=== PATIENT | female | born 1975 | race American Indian/Alaskan Native ===

== ENCOUNTER 2018-01-13 21:02 | Emergency (ER) | payer SELFPAY ==
[2018-01-13 22:24] LABS: Basophils % (Auto) 0.4 % (0.0-1.8); Eosinophils # (Auto) 0.6 K/mm3 (0.0-0.4); Hematocrit 34.8 % (30.3-42.9); Lymphocytes # (Auto) 1.9 K/mm3 (1.2-5.4); Lymphocytes % (Auto) 21.7 % (13.4-35.0); Mean Corpuscular HGB Conc 35 % (30-34); Mean Corpuscular Hemoglobin 31 pg (28-32); Mean Corpuscular Volume 88 fl (79-97); Monocytes # (Auto) 1.2 K/mm3 (0.0-0.8); Monocytes % (Auto) 13.9 % (0.0-7.3); Platelet Count 352 K/mm3 (140-440); Red Blood Count 3.94 M/mm3 (3.65-5.03); Red Cell Distribution Width 13.8 % (13.2-15.2)
[2018-01-13 23:06] LABS: BUN/Creatinine Ratio 20; Blood Urea Nitrogen 14 mg/dL (7-17); Calcium 8.8 mg/dL (8.4-10.2); Hemolysis Index 5
[2018-01-14 00:51] LABS: Bilirubin,Urine NEG (Negative); Blood,Urine NEG (Negative); Color,Urine Yellow (Yellow); Protein,Urine <15 mg/dL mg/dL (Negative); Urobilinogen,Urine < 2.0 mg/dL (<2.0)
[2018-01-14 00:55] LABS: Amphetamine Screen,Urine PRESUMPTIVE NEGATIVE; Cannabinoid Screen,Urine PRESUMPTIVE NEGATIVE; Cocaine Screen,Urine PRESUMPTIVE NEGATIVE; Methadone Screen,Urine PRESUMPTIVE NEGATIVE; Opiate Screen,Urine PRESUMPTIVE NEGATIVE
--- NOTE | 2018-01-14 01:10 | Emergency Department Report ---
ED Medical Clearance HPI - General Chief complaint: Medical Clearance Stated complaint: MEDICAL CLEAR. Time Seen by Provider: 01/13/18 22:31 Source: patient Mode of arrival: Ambulatory - History of Present Illness Initial comments: Patient is a 42-year-old female who is presenting for medical clearance to go to [facility] which is a long-term mental health lodging situation. Patient is here for medical clearance so that she can be admitted. Patient has no complaints other than just some mild cough that has been increasing for the last week. Patient states there is a clearish sputum present. Patient denies any fevers chills drug use alcohol use abdominal pain nausea vomiting or fever at this time. Home medications: Previous Rx's Medication Instructions Recorded Last Taken Type ALBUTEROL Inhaler [ProAir HFA 2 puff IH QID PRN #1 inhalation 01/14/18 Unknown Rx Inhaler] Sulfamethoxazole/Trimethoprim 1 each PO BID #14 tablet 01/14/18 Unknown Rx [Bactrim DS TAB] Allergies/Adverse reactions: Allergies Allergy/AdvReac Type Severity Reaction Status Date / Time No Known Allergies Allergy Unverified 01/13/18 21:57 ED Review of Systems ROS: Stated complaint: MEDICAL CLEAR. Other details as noted in HPI Comment: All other systems reviewed and negative ED Past Medical Hx - Past Medical History Previous Medical History?: Yes Hx Hypertension: Yes Hx Psychiatric Treatment: Yes (depression with psychosis, bipolar) Hx Asthma: Yes Hx COPD: Yes Additional medical history: low Blood sugar - Surgical History Past Surgical History?: Yes Additional Surgical History: partial Hyster, hernia, lumpectomy rt breast - Social History Smoking Status: Current Every Day Smoker Substance Use Type: Alcohol - Medications Home Medications: Home Medications Medication Instructions Recorded Confirmed Last Taken Type ALBUTEROL Inhaler [ProAir HFA 2 puff IH QID PRN #1 inhalation 01/14/18 Unknown Rx Inhaler] Sulfamethoxazole/Trimethoprim 1 each PO BID #14 tablet 01/14/18 Unknown Rx [Bactrim DS TAB] ED Physical Exam - General Limitations: No Limitations General appearance: alert, in no apparent distress - Head Head exam: Present: atraumatic, normocephalic - Eye Eye exam: Present: normal appearance - ENT ENT exam: Present: mucous membranes moist - Neck Neck exam: Present: normal inspection - Respiratory Respiratory exam: Present: normal lung sounds bilaterally. Absent: respiratory distress - Cardiovascular Cardiovascular Exam: Present: regular rate, normal rhythm. Absent: systolic murmur, diastolic murmur, rubs, gallop - GI/Abdominal GI/Abdominal exam: Present: soft, normal bowel sounds - Extremities Exam Extremities exam: Present: normal inspection - Back Exam Back exam: Present: normal inspection - Neurological Exam Neurological exam: Present: alert, oriented X3 - Psychiatric Psychiatric exam: Present: normal affect, normal mood - Skin Skin exam: Present: warm, dry, intact, normal color. Absent: rash ED Medical Decision Making - Lab Data Result diagrams: 01/13/18 22:14 01/13/18 22:14 Lab Results 01/13/18 01/13/18 01/13/18 Range/Units 22:14 22:14 22:14 WBC (4.5-11.0) K/mm3 RBC (3.65-5.03) M/mm3 Hgb (10.1-14.3) gm/dl Hct (30.3-42.9) % MCV (79-97) fl MCH (28-32) pg MCHC (30-34) % RDW (13.2-15.2) % Plt Count (140-440) K/mm3 Lymph % (Auto) (13.4-35.0) % Elliott % (Auto) (0.0-7.3) % Eos % (Auto) (0.0-4.3) % Baso % (Auto) (0.0-1.8) % Lymph # (1.2-5.4) K/mm3 Elliott # (0.0-0.8) K/mm3 Eos # (0.0-0.4) K/mm3 Baso # (0.0-0.1) K/mm3 Seg Neutrophils % (40.0-70.0) % Seg Neutrophils # (1.8-7.7) K/mm3 Sodium 136 L (137-145) mmol/L Potassium 3.9 (3.6-5.0) mmol/L Chloride 92.6 L (98-107) mmol/L Carbon Dioxide 31 H (22-30) mmol/L Anion Gap 16 mmol/L BUN 14 (7-17) mg/dL Creatinine 0.7 (0.7-1.2) mg/dL Estimated GFR > 60 ml/min BUN/Creatinine Ratio 20 % Glucose 76 (65-100) mg/dL Calcium 8.8 (8.4-10.2) mg/dL Urine Color (Yellow) Urine Turbidity (Clear) Urine pH (5.0-7.0) Ur Specific [place] (1.003-1.030) Urine Protein (Negative) mg/dL Urine Glucose (UA) (Negative) mg/dL Urine Ketones (Negative) mg/dL Urine Blood (Negative) Urine Nitrite (Negative) Urine Bilirubin (Negative) Urine Urobilinogen (<2.0) mg/dL Ur Leukocyte Esterase (Negative) Urine WBC (Auto) (0.0-6.0) /HPF Urine RBC (Auto) (0.0-6.0) /HPF U Epithel Cells (Auto) (0-13.0) /HPF Salicylates < 0.3 L (2.8-20.0) mg/dL Urine Opiates Screen Urine Methadone Screen Acetaminophen < 5.0 L (10.0-30.0) ug/mL Ur Barbiturates Screen Ur Phencyclidine Scrn Ur Amphetamines Screen Urine Cocaine Screen U Marijuana (THC) Screen Plasma/Serum Alcohol (0-0.07) % 01/13/18 01/13/18 01/13/18 Range/Units 22:14 22:14 23:19 WBC 8.8 (4.5-11.0) K/mm3 RBC 3.94 (3.65-5.03) M/mm3 Hgb 12.0 (10.1-14.3) gm/dl Hct 34.8 (30.3-42.9) % MCV 88 (79-97) fl MCH 31 (28-32) pg MCHC 35 H (30-34) % RDW 13.8 (13.2-15.2) % Plt Count 352 (140-440) K/mm3 Lymph % (Auto) 21.7 (13.4-35.0) % Elliott % (Auto) 13.9 H (0.0-7.3) % Eos % (Auto) 7.0 H (0.0-4.3) % Baso % (Auto) 0.4 (0.0-1.8) % Lymph # 1.9 (1.2-5.4) K/mm3 Elliott # 1.2 H (0.0-0.8) K/mm3 Eos # 0.6 H (0.0-0.4) K/mm3 Baso # 0.0 (0.0-0.1) K/mm3 Seg Neutrophils % 57.0 (40.0-70.0) % Seg Neutrophils # 5.0 (1.8-7.7) K/mm3 Sodium (137-145) mmol/L Potassium (3.6-5.0) mmol/L Chloride (98-107) mmol/L Carbon Dioxide (22-30) mmol/L Anion Gap mmol/L BUN (7-17) mg/dL Creatinine (0.7-1.2) mg/dL Estimated GFR ml/min BUN/Creatinine Ratio % Glucose (65-100) mg/dL Calcium (8.4-10.2) mg/dL Urine Color Yellow (Yellow) Urine Turbidity Clear (Clear) Urine pH 5.0 (5.0-7.0) Ur Specific [place] 1.008 (1.003-1.030) Urine Protein <15 mg/dl (Negative) mg/dL Urine Glucose (UA) Neg (Negative) mg/dL Urine Ketones Neg (Negative) mg/dL Urine Blood Neg (Negative) Urine Nitrite Neg (Negative) Urine Bilirubin Neg (Negative) Urine Urobilinogen < 2.0 (<2.0) mg/dL Ur Leukocyte Esterase Lg (Negative) Urine WBC (Auto) 7.0 H (0.0-6.0) /HPF Urine RBC (Auto) 3.0 (0.0-6.0) /HPF U Epithel Cells (Auto) < 1.0 (0-13.0) /HPF Salicylates (2.8-20.0) mg/dL Urine Opiates Screen Urine Methadone Screen Acetaminophen (10.0-30.0) ug/mL Ur Barbiturates Screen Ur Phencyclidine Scrn Ur Amphetamines Screen Urine Cocaine Screen U Marijuana (THC) Screen Plasma/Serum Alcohol < 0.01 (0-0.07) % 01/13/18 Range/Units 23:19 WBC (4.5-11.0) K/mm3 RBC (3.65-5.03) M/mm3 Hgb (10.1-14.3) gm/dl Hct (30.3-42.9) % MCV (79-97) fl MCH (28-32) pg MCHC (30-34) % RDW (13.2-15.2) % Plt Count (140-440) K/mm3 Lymph % (Auto) (13.4-35.0) % Elliott % (Auto) (0.0-7.3) % Eos % (Auto) (0.0-4.3) % Baso % (Auto) (0.0-1.8) % Lymph # (1.2-5.4) K/mm3 Elliott # (0.0-0.8) K/mm3 Eos # (0.0-0.4) K/mm3 Baso # (0.0-0.1) K/mm3 Seg Neutrophils % (40.0-70.0) % Seg Neutrophils # (1.8-7.7) K/mm3 Sodium (137-145) mmol/L Potassium (3.6-5.0) mmol/L Chloride (98-107) mmol/L Carbon Dioxide (22-30) mmol/L Anion Gap mmol/L BUN (7-17) mg/dL Creatinine (0.7-1.2) mg/dL Estimated GFR ml/min BUN/Creatinine Ratio % Glucose (65-100) mg/dL Calcium (8.4-10.2) mg/dL Urine Color (Yellow) Urine Turbidity (Clear) Urine pH (5.0-7.0) Ur Specific [place] (1.003-1.030) Urine Protein (Negative) mg/dL Urine Glucose (UA) (Negative) mg/dL Urine Ketones (Negative) mg/dL Urine Blood (Negative) Urine Nitrite (Negative) Urine Bilirubin (Negative) Urine Urobilinogen (<2.0) mg/dL Ur Leukocyte Esterase (Negative) Urine WBC (Auto) (0.0-6.0) /HPF Urine RBC (Auto) (0.0-6.0) /HPF U Epithel Cells (Auto) (0-13.0) /HPF Salicylates (2.8-20.0) mg/dL Urine Opiates Screen Presumptive negative Urine Methadone Screen Presumptive negative Acetaminophen (10.0-30.0) ug/mL Ur Barbiturates Screen Presumptive negative Ur Phencyclidine Scrn Presumptive negative Ur Amphetamines Screen Presumptive negative Urine Cocaine Screen Presumptive negative U Marijuana (THC) Screen Presumptive negative Plasma/Serum Alcohol (0-0.07) % - Radiology Data Radiology results: image reviewed (chest x-ray shows no acute process) - Medical Decision Making Patient is medically cleared at this time to [facility]. Patient will be started on Bactrim for her urinary tract infection and slight upper respiratory infection as well. ED Disposition Clinical Impression: Medical clearance for psychiatric admission Acute bronchitis Qualifiers: Bronchitis organism: unspecified organism Qualified Code(s): J20.9 - Acute bronchitis, unspecified UTI (urinary tract infection) Qualifiers: Urinary tract infection type: site unspecified Hematuria presence: without hematuria Qualified Code(s): N39.0 - Urinary tract infection, site not specified Disposition: - TO HOME OR SELFCARE Is pt being admited?: No Does the pt Need Aspirin: No Condition: Stable Instructions: Acute Bronchitis (ED), Urinary Tract Infection in Women (ED) Prescriptions: ALBUTEROL Inhaler [ProAir HFA Inhaler] 2 puff IH QID PRN #1 inhalation PRN Reason: Shortness Of Breath Sulfamethoxazole/Trimethoprim [Bactrim DS TAB] 1 each PO BID #14 tablet Referrals: RENEE SHEETS MD [Primary Care Provider] - 3-5 Days
[2018-01-14 01:22] LABS: Benzodiazepines Screen,Urine PRESUMPTIVE POSITIVE
--- NOTE | 2018-01-14 01:50 | XRay Report ---
FINAL REPORT PROCEDURE: XR CHEST ROUTINE 2V TECHNIQUE: PA and lateral chest radiographs were obtained. CPT 35221 HISTORY: Cough. COMPARISON: No prior studies are available for comparison. FINDINGS: Heart: On lateral view subtle C-shaped opacity seen anteriorly about the apex of the heart. Mediastinum/Vessels: Mild aortic tortuosity. Lungs/Pleural space: Moderate hyperinflation. Right perihilar linear opacity with mild distortion and possible mild bronchiectasis. Subtle peribronchial thickening. Bony thorax: Moderate dextroscoliosis. Other: IMPRESSION: On lateral view subtle C-shaped opacity seen anteriorly about the apex of the heart, cannot exclude subtle calcification, possibly pericardial or myocardial. Consider CT scan for further characterization if there is continued clinical concern. Mild aortic tortuosity. Hyperinflation suggests obstructive physiology. Right perihilar linear opacity with mild distortion and mild bronchiectasis. Subtle peribronchial thickening, consider mild bronchitis. This can also be re-evaluated on CT scan.
== END 2018-01-14 01:59 | disposition home or self-care (01) ==
LOC: ED 21:02
DX: Z04.6 Encounter for general psychiatric examination, requested by authority (principal); J20.9 Acute bronchitis, unspecified; J44.0 Chronic obstructive pulmonary disease with (acute) lower respiratory infection; N39.0 Urinary tract infection, site not specified; I10 Essential (primary) hypertension; F31.9 Bipolar disorder, unspecified; F17.200 Nicotine dependence, unspecified, uncomplicated; Z79.899 Other long term (current) drug therapy
CPT/HCPCS: 36415; 71046; 80048; 80307; 81001; 85025; 99284; G0480; 80320

== ENCOUNTER 2018-01-16 00:25 | Emergency (ER) | payer MEDICARE ==
[2018-01-16 02:09] LABS: Hematocrit 32.3 % (30.3-42.9); Hemoglobin 11.2 gm/dl (10.1-14.3); Mean Corpuscular HGB Conc 35 % (30-34); Mean Corpuscular Hemoglobin 31 pg (28-32); Mean Corpuscular Volume 88 fl (79-97); Platelet Count 292 K/mm3 (140-440); Red Blood Count 3.68 M/mm3 (3.65-5.03); Red Cell Distribution Width 13.5 % (13.2-15.2)
[2018-01-16 02:29] LABS: BUN/Creatinine Ratio 31; Blood Urea Nitrogen 25 mg/dL (7-17); Calcium 8.7 mg/dL (8.4-10.2); Hemolysis Index 1
[2018-01-16 02:51] LABS: Basophils % (Manual) 0 % (0.0-1.8); RBC Morphology Normal; Total Cells Counted 100
[2018-01-16 02:52] LABS: Platelet Estimate Consistent w Auto
[2018-01-16 03:06] LABS: Bacteria,Urine 1+ /HPF (Negative); Bilirubin,Urine NEG (Negative); Blood,Urine NEG (Negative); Color,Urine Yellow (Yellow); Protein,Urine <15 mg/dL mg/dL (Negative); Urobilinogen,Urine < 2.0 mg/dL (<2.0)
[2018-01-16 03:16] LABS: Amphetamine Screen,Urine PRESUMPTIVE NEGATIVE; Cannabinoid Screen,Urine PRESUMPTIVE NEGATIVE; Cocaine Screen,Urine PRESUMPTIVE NEGATIVE; Methadone Screen,Urine PRESUMPTIVE NEGATIVE; Opiate Screen,Urine PRESUMPTIVE NEGATIVE
[2018-01-16 03:30] LABS: Benzodiazepines Screen,Urine PRESUMPTIVE POSITIVE
[2018-01-16] MEDS ORDERED: NACL 0.9% 1000 ML 1,000 ML IV ONE (04:54)
--- NOTE | 2018-01-16 04:58 | Emergency Department Report ---
History of Present Illness - General Chief Complaint: Overdose Stated Complaint: MEDICAL CLEARANCE Time Seen by Provider: 01/16/18 02:52 Source: patient Mode of arrival: Ambulatory Limitations: No Limitations - History of Present Illness Initial Comments: Patient was sent from [facility] because she's been very drowsy and was sent here for medical clearance. Patient had 2 mg of Xanax on the day of presentation. She was previously sent here for medication side effects due to benzodiazepines a few weeks ago. Patient herself is very drowsy and very sleepy and not able to stay awake long enough to complete a sentence. MD Complaint: accidental overdose -: Gradual Context: Accidental Overdose: other (benzodiazepine) - Related Data Previous Rx's Medication Instructions Recorded Last Taken Type ALBUTEROL Inhaler [ProAir HFA 2 puff IH QID PRN #1 inhalation 01/14/18 Unknown Rx Inhaler] Sulfamethoxazole/Trimethoprim 1 each PO BID #14 tablet 01/14/18 Unknown Rx [Bactrim DS TAB] Allergies Allergy/AdvReac Type Severity Reaction Status Date / Time No Known Allergies Allergy Unverified 01/13/18 21:57 ED Review of Systems ROS: Stated complaint: MEDICAL CLEARANCE Other details as noted in HPI Comment: Unobtainable due to pts medical conditions (patient is very drowsy) ED Past Medical Hx - Past Medical History Previous Medical History?: Yes Hx Hypertension: Yes Hx Psychiatric Treatment: Yes (depression with psychosis, bipolar) Hx Asthma: Yes Hx COPD: Yes Additional medical history: low Blood sugar - Surgical History Past Surgical History?: Yes Additional Surgical History: partial Hyster, hernia, lumpectomy rt breast - Social History Smoking Status: Current Every Day Smoker Substance Use Type: Alcohol - Medications Home Medications: Home Medications Medication Instructions Recorded Confirmed Last Taken Type ALBUTEROL Inhaler [ProAir HFA 2 puff IH QID PRN #1 inhalation 01/14/18 Unknown Rx Inhaler] Sulfamethoxazole/Trimethoprim 1 each PO BID #14 tablet 01/14/18 Unknown Rx [Bactrim DS TAB] ED Physical Exam - General Limitations: No Limitations General appearance: in no apparent distress, lethargic - Head Head exam: Present: atraumatic, normocephalic - Eye Eye exam: Present: normal appearance - ENT ENT exam: Present: mucous membranes moist - Neck Neck exam: Present: normal inspection - Respiratory Respiratory exam: Present: normal lung sounds bilaterally. Absent: respiratory distress - Cardiovascular Cardiovascular Exam: Present: regular rate, normal rhythm. Absent: systolic murmur, diastolic murmur, rubs, gallop - GI/Abdominal GI/Abdominal exam: Present: soft, normal bowel sounds. Absent: tenderness - Rectal Rectal exam: Present: deferred - Extremities Exam Extremities exam: Present: normal inspection - Back Exam Back exam: Present: normal inspection - Neurological Exam Neurological exam: Absent: alert, oriented X3 - Skin Skin exam: Present: warm, dry, intact, normal color. Absent: rash ED Course Vital Signs 01/16/18 01/16/18 01/16/18 01:33 01:59 02:00 Temperature 98 F 97.9 F Pulse Rate 96 H 90 Respiratory 14 16 16 Rate Blood Pressure 86/48 Blood Pressure 90/53 [Left] O2 Sat by Pulse 95 95 95 Oximetry - Reevaluation(s) Reevaluation #1: 01/16/18 06:18 Patient is now alert and oriented and eating ED Medical Decision Making - Lab Data Result diagrams: 01/16/18 01:56 01/16/18 01:56 Critical care attestation.: If time is entered above; I have spent that time in minutes in the direct care of this critically ill patient, excluding procedure time. ED Disposition Clinical Impression: Medication side effect Disposition: DC-01 TO HOME OR SELFCARE Is pt being admited?: No Does the pt Need Aspirin: No Condition: Stable Instructions: Benzodiazepine Abuse (ED) Additional Instructions: gradually wean yourself off benzodiazepines Referrals: RENEE SHEETS MD [Primary Care Provider] - 3-5 Days Time of Disposition: 06:19 Print Language: MOHAWK
[2018-01-16 05:38] LABS: HCG Qualitative,Urine Negative (Negative)
--- NOTE | 2018-01-16 05:54 | Cat Scan Report ---
FINAL REPORT EXAM: CT HEAD/BRAIN WO CON HISTORY: altered mental status TECHNIQUE: Routine axial imaging was obtained of the brain without IV contrast. There are no previous studies available for comparison. FINDINGS: There is very mild atrophy. There is no evidence of acute stroke or hemorrhage. The ventricular system is appropriate in size and is symmetric. The basal cisterns appear normal. The sinuses reveal patchy mucosal thickening in the ethmoid air cells along with mucosal thickening and air fluid level in the left maxillary sinus. The mastoid air cells are well pneumatized. The calvarium appears intact. IMPRESSION: No acute intracranial process. Sinusitis as described.
[2018-01-16 08:18] VITALS: BP 108/75
== END 2018-01-16 08:21 | disposition home or self-care (01) ==
LOC: ED 00:25
DX: T42.4X5A Adverse effect of benzodiazepines, initial encounter (principal); I10 Essential (primary) hypertension; F31.9 Bipolar disorder, unspecified; J45.909 Unspecified asthma, uncomplicated; F17.200 Nicotine dependence, unspecified, uncomplicated; Z90.711 Acquired absence of uterus with remaining cervical stump; Y92.89 Other specified places as the place of occurrence of the external cause
CPT/HCPCS: 36415; 70450; 80048; 80307; 81001; 81025; 82962; 85007; 85025; 96360; 99284; G0480; J7030; 80320

== ENCOUNTER 2019-06-30 07:23 | Emergency (ER) | payer MEDICARE ==
--- NOTE | 2019-06-30 07:57 | Emergency Department Report ---
ED Medical Clearance HPI - General Chief complaint: Medical Clearance Stated complaint: MEDICAL CLEARANCE Time Seen by Provider: 06/30/19 07:41 Source: patient, EMS Mode of arrival: Stretcher - History of Present Illness Initial comments: 44-year-old female with a history of COPD, bipolar disorder, schizoaffective disorder, anxiety, presents to ED from [facility] facility for medical clearance. Patient presented there for alcohol and opiate abuse. She has deformity of left ring finger. Patient states she fell one week ago, was seen at [facility] where she had xrays done and was diagnosed with a fracture. At that time, patient states a splint was applied and she was instructed to follow-up with the orthopedic hand surgeon. Patient states the splint fell off snd she has not yet followed up. MD Complaint: medical clearance request -: This morning Reason for Medical Clearance: psychiatric condition Traumatic Symptoms: denies traumatic injury Treatments Prior to Arrival: none Home medications: Previous Rx's Medication Instructions Recorded Last Taken Type ALBUTEROL Inhaler (OR & NICU) 2 puff IH QID PRN #1 inhalation 01/14/18 Unknown Rx [ProAir HFA Inhaler] Sulfamethoxazole/Trimethoprim 1 each PO BID #14 tablet 01/14/18 Unknown Rx [Bactrim DS TAB] Allergies/Adverse reactions: Allergies Allergy/AdvReac Type Severity Reaction Status Date / Time No Known Allergies Allergy Unverified 01/13/18 21:57 ED Review of Systems ROS: Stated complaint: MEDICAL CLEARANCE Other details as noted in HPI Comment: All other systems reviewed and negative Musculoskeletal: as per HPI Psychiatric: denies: homicidal thoughts, suicidal thoughts ED Past Medical Hx - Past Medical History Previous Medical History?: Yes Hx Hypertension: Yes Hx Psychiatric Treatment: Yes (depression with psychosis, bipolar) Hx Asthma: Yes Hx COPD: Yes Additional medical history: low Blood sugar - Surgical History Past Surgical History?: Yes Additional Surgical History: partial Hyster, hernia, lumpectomy rt breast - Social History Smoking Status: Former Smoker Substance Use Type: Alcohol - Medications Home Medications: Home Medications Medication Instructions Recorded Confirmed Last Taken Type ALBUTEROL Inhaler (OR & NICU) 2 puff IH QID PRN #1 inhalation 01/14/18 Unknown Rx [ProAir HFA Inhaler] Sulfamethoxazole/Trimethoprim 1 each PO BID #14 tablet 01/14/18 Unknown Rx [Bactrim DS TAB] ED Physical Exam - General Limitations: No Limitations General appearance: alert, in no apparent distress - Head Head exam: Present: atraumatic, normocephalic - Eye Eye exam: Present: normal appearance, EOMI - ENT ENT exam: Present: mucous membranes moist - Neck Neck exam: Present: normal inspection - Respiratory Respiratory exam: Present: normal lung sounds bilaterally. Absent: respiratory distress - Cardiovascular Cardiovascular Exam: Present: regular rate, normal rhythm - GI/Abdominal GI/Abdominal exam: Absent: distended - Extremities Exam Extremities exam: Present: other (left ring finger deformity present, PIP in flexion, unable to extend; left index finger s/p partial amputation) - Neurological Exam Neurological exam: Present: alert, oriented X3 - Psychiatric Psychiatric exam: Present: normal affect, normal mood - Skin Skin exam: Present: warm, dry, intact, normal color ED Course Vital Signs 06/30/19 06/30/19 06/30/19 07:23 09:04 09:33 Temperature 98.7 F Pulse Rate 83 85 86 Respiratory 16 16 16 Rate Blood Pressure 93/85 Blood Pressure 93/58 105/79 126/78 [Left] O2 Sat by Pulse 98 100 100 Oximetry ED Medical Decision Making - Lab Data Result diagrams: 06/30/19 07:58 06/30/19 07:58 ED Disposition Clinical Impression: Medical clearance for psychiatric admission Disposition: DC-01 TO HOME OR SELFCARE Is pt being admited?: No Condition: Stable Instructions: Medical Clearance for Substance Abuse Treatment (ED), Polysubstance Abuse (ED), Abuse of Alcohol (ED) Referrals: OLIVA CENTENO MD [Primary Care Provider] - 3-5 Days Time of Disposition: 09:53
[2019-06-30 08:11] LABS: Basophils # (Auto) 0.1 K/mm3 (0.0-0.1); Basophils % (Auto) 0.9 % (0.0-1.8); Eosinophils # (Auto) 0.2 K/mm3 (0.0-0.4); Hematocrit 38.6 % (30.3-42.9); Lymphocytes # (Auto) 2.3 K/mm3 (1.2-5.4); Lymphocytes % (Auto) 22.6 % (13.4-35.0); Mean Corpuscular HGB Conc 34 % (30-34); Mean Corpuscular Volume 88 fl (79-97); Monocytes # (Auto) 1.1 K/mm3 (0.0-0.8); Monocytes % (Auto) 10.9 % (0.0-7.3); Platelet Count 534 K/mm3 (140-440); Red Blood Count 4.41 M/mm3 (3.65-5.03); Red Cell Distribution Width 16.2 % (13.2-15.2)
[2019-06-30 08:25] LABS: BUN/Creatinine Ratio 18; Blood Urea Nitrogen 11 mg/dL (7-17); Calcium 8.9 mg/dL (8.4-10.2); Hemolysis Index 9
[2019-06-30 09:40] LABS: Bilirubin,Urine NEG (Negative); Blood,Urine NEG (Negative); Color,Urine Yellow (Yellow); Mucus,Urine FEW /HPF; Protein,Urine <15 mg/dL mg/dL (Negative); Urobilinogen,Urine < 2.0 mg/dL (<2.0)
[2019-06-30 09:41] LABS: HCG Qualitative,Urine Negative (Negative)
[2019-06-30 09:45] LABS: Amphetamine Screen,Urine PRESUMPTIVE NEGATIVE; Benzodiazepines Screen,Urine PRESUMPTIVE NEGATIVE; Cannabinoid Screen,Urine PRESUMPTIVE NEGATIVE; Cocaine Screen,Urine PRESUMPTIVE NEGATIVE; Methadone Screen,Urine PRESUMPTIVE NEGATIVE; Opiate Screen,Urine PRESUMPTIVE NEGATIVE
[2019-06-30 12:31] VITALS: BP 119/81
== END 2019-06-30 12:32 | disposition home or self-care (01) ==
LOC: ED 07:23
DX: F20.9 Schizophrenia, unspecified (principal); F31.9 Bipolar disorder, unspecified; F41.9 Anxiety disorder, unspecified; J44.9 Chronic obstructive pulmonary disease, unspecified; F10.10 Alcohol abuse, uncomplicated; F11.10 Opioid abuse, uncomplicated; I10 Essential (primary) hypertension; Z79.899 Other long term (current) drug therapy; Z90.711 Acquired absence of uterus with remaining cervical stump; Z87.442 Personal history of urinary calculi; Z89.022 Acquired absence of left finger(s)
CPT/HCPCS: 36415; 80048; 80307; 80320; 81001; 81025; 85025; 99283; G0480

== ENCOUNTER 2019-08-07 15:28 | Emergency (ER) | payer MEDICARE ==
--- NOTE | 2019-08-07 16:05 | Emergency Department Report ---
ED Psych HPI - General Chief Complaint: Psych Stated Complaint: MH EVAL Time Seen by Provider: 08/07/19 16:02 Source: patient Mode of arrival: Ambulatory - History of Present Illness Initial Comments: 44 YO THIN FEMALE WHO COMES TO ER WITH CO OF SI AND PLAN TO "HANG HERSELF." ANX IOUS ON EXAM. RESTLESS. HYPERVERBAL. RAMLING WITH FLIGHT OF IDEAS. DIFFICULT TO GET A GOOD HISTORY. SHE REPORTS TAKING SEROQUEL AND PERCOCET SHE IS DISHEVELED AND THIN. HAS BEEN HERE BEFORE WITH RECENT ADMIT TO [facility]CHOR. WILL CLEAR MEDICALLY AND HAVE MHE. Complaint: suicidal ideation -: Gradual, days(s) Associated Psychiatric Symptoms: depression, suicidal ideation History of same: Yes Associated Symptoms: denies other symptoms Treatments Prior to Arrival: none If Self Harm: admits thoughts of, has plan - Related Data Previous Rx's Medication Instructions Recorded Last Taken Type ALBUTEROL Inhaler (OR & NICU) 2 puff IH QID PRN #1 inhalation 01/14/18 Unknown Rx [ProAir HFA Inhaler] Allergies Allergy/AdvReac Type Severity Reaction Status Date / Time No Known Allergies Allergy Unverified 01/13/18 21:57 ED Review of Systems ROS: Stated complaint: MH EVAL Other details as noted in HPI Comment: All other systems reviewed and negative ED Past Medical Hx - Past Medical History Previous Medical History?: Yes Hx Hypertension: Yes Hx Psychiatric Treatment: Yes (depression with psychosis, bipolar) Hx Asthma: Yes Hx COPD: Yes Additional medical history: low Blood sugar - Surgical History Past Surgical History?: Yes Additional Surgical History: partial Hyster, hernia, lumpectomy rt breast - Family History Family history: no significant - Social History Smoking Status: Former Smoker Substance Use Type: Alcohol, Other (PERCOCET) - Medications Home Medications: Home Medications Medication Instructions Recorded Confirmed Last Taken Type ALBUTEROL Inhaler (OR & NICU) 2 puff IH QID PRN #1 inhalation 01/14/18 Unknown Rx [ProAir HFA Inhaler] ED Physical Exam - General Limitations: No Limitations General appearance: alert, in no apparent distress - Head Head exam: Present: atraumatic, normocephalic - Eye Eye exam: Present: normal appearance - ENT ENT exam: Present: mucous membranes moist - Neck Neck exam: Present: normal inspection - Respiratory Respiratory exam: Present: normal lung sounds bilaterally. Absent: respiratory distress - Cardiovascular Cardiovascular Exam: Present: regular rate, normal rhythm. Absent: systolic murmur, diastolic murmur, rubs, gallop - GI/Abdominal GI/Abdominal exam: Present: soft, normal bowel sounds - Rectal Rectal exam: Present: deferred - Extremities Exam Extremities exam: Present: normal inspection - Back Exam Back exam: Present: normal inspection - Neurological Exam Neurological exam: Present: alert, oriented X3 - Psychiatric Psychiatric exam: Present: anxious, suicidal ideation - Expanded Psychiatric Exam Expanded Focused psych exam: Present: pressured speech, psychomotor agitation, perseverating, restlessness, flight of ideas, loose associations - Skin Skin exam: Present: warm, dry, intact, normal color. Absent: rash ED Course Vital Signs 08/07/19 08/07/19 08/07/19 15:43 16:22 16:32 Temperature 98.8 F 98.2 F Pulse Rate 92 H 68 Respiratory 18 18 18 Rate Blood Pressure 114/65 144/65 O2 Sat by Pulse 97 100 100 Oximetry ED Medical Decision Making - Lab Data Result diagrams: 08/07/19 16:09 08/07/19 16:09 - Medical Decision Making 1013 FOR SAFETY Lab Results 08/07/19 08/07/19 08/07/19 Range/Units 16:09 16:09 16:09 WBC 11.0 (4.5-11.0) K/mm3 RBC 4.17 (3.65-5.03) M/mm3 Hgb 13.0 (10.1-14.3) gm/dl Hct 37.1 (30.3-42.9) % MCV 89 (79-97) fl MCH 31 (28-32) pg MCHC 35 H (30-34) % RDW 15.0 (13.2-15.2) % Plt Count 529 H (140-440) K/mm3 Lymph % (Auto) 11.9 L (13.4-35.0) % [place] % (Auto) 8.6 H (0.0-7.3) % Eos % (Auto) 1.2 (0.0-4.3) % Baso % (Auto) 0.4 (0.0-1.8) % Lymph # 1.3 (1.2-5.4) K/mm3 [place] # 0.9 H (0.0-0.8) K/mm3 Eos # 0.1 (0.0-0.4) K/mm3 Baso # 0.0 (0.0-0.1) K/mm3 Seg Neutrophils % 77.9 H (40.0-70.0) % Seg Neutrophils # 8.6 H (1.8-7.7) K/mm3 Sodium 131 L (137-145) mmol/L Potassium 3.4 L (3.6-5.0) mmol/L Chloride 91.9 L (98-107) mmol/L Carbon Dioxide 26 (22-30) mmol/L Anion Gap 17 mmol/L BUN 15 (7-17) mg/dL Creatinine 0.5 L (0.7-1.2) mg/dL Estimated GFR > 60 ml/min BUN/Creatinine Ratio 30 % Glucose 136 H (65-100) mg/dL Calcium 9.1 (8.4-10.2) mg/dL Total Bilirubin 0.30 (0.1-1.2) mg/dL AST 22 (5-40) units/L ALT 21 (7-56) units/L Alkaline Phosphatase 84 (35-129) units/L Total Protein 7.7 (6.3-8.2) g/dL Albumin 4.2 (3.9-5) g/dL Albumin/Globulin Ratio 1.2 % HCG, Qual (Negative) Urine Color (Yellow) Urine Turbidity (Clear) Urine pH (5.0-7.0) Ur Specific [place] (1.003-1.030) Urine Protein (Negative) mg/dL Urine Glucose (UA) (Negative) mg/dL Urine Ketones (Negative) mg/dL Urine Blood (Negative) Urine Nitrite (Negative) Urine Bilirubin (Negative) Urine Urobilinogen (<2.0) mg/dL Ur Leukocyte Esterase (Negative) Urine WBC (Auto) (0.0-6.0) /HPF Urine RBC (Auto) (0.0-6.0) /HPF U Epithel Cells (Auto) (0-13.0) /HPF Urine Mucus /HPF Salicylates (2.8-20.0) mg/dL Urine Opiates Screen Urine Methadone Screen Acetaminophen < 5.0 L (10.0-30.0) ug/mL Ur Barbiturates Screen Valproic Acid (50-100) ug/mL Ur Phencyclidine Scrn Ur Amphetamines Screen U Benzodiazepines Scrn Frostproof (0.0-1.2) mmol/L Urine Cocaine Screen U Marijuana (THC) Screen Drugs of Abuse Note Plasma/Serum Alcohol (0-0.07) % 08/07/19 08/07/19 08/07/19 Range/Units 16:09 16:09 16:09 WBC (4.5-11.0) K/mm3 RBC (3.65-5.03) M/mm3 Hgb (10.1-14.3) gm/dl Hct (30.3-42.9) % MCV (79-97) fl MCH (28-32) pg MCHC (30-34) % RDW (13.2-15.2) % Plt Count (140-440) K/mm3 Lymph % (Auto) (13.4-35.0) % [place] % (Auto) (0.0-7.3) % Eos % (Auto) (0.0-4.3) % Baso % (Auto) (0.0-1.8) % Lymph # (1.2-5.4) K/mm3 [place] # (0.0-0.8) K/mm3 Eos # (0.0-0.4) K/mm3 Baso # (0.0-0.1) K/mm3 Seg Neutrophils % (40.0-70.0) % Seg Neutrophils # (1.8-7.7) K/mm3 Sodium (137-145) mmol/L Potassium (3.6-5.0) mmol/L Chloride (98-107) mmol/L Carbon Dioxide (22-30) mmol/L Anion Gap mmol/L BUN (7-17) mg/dL Creatinine (0.7-1.2) mg/dL Estimated GFR ml/min BUN/Creatinine Ratio % Glucose (65-100) mg/dL Calcium (8.4-10.2) mg/dL Total Bilirubin (0.1-1.2) mg/dL AST (5-40) units/L ALT (7-56) units/L Alkaline Phosphatase (35-129) units/L Total Protein (6.3-8.2) g/dL Albumin (3.9-5) g/dL Albumin/Globulin Ratio % HCG, Qual Negative (Negative) Urine Color (Yellow) Urine Turbidity (Clear) Urine pH (5.0-7.0) Ur Specific [place] (1.003-1.030) Urine Protein (Negative) mg/dL Urine Glucose (UA) (Negative) mg/dL Urine Ketones (Negative) mg/dL Urine Blood (Negative) Urine Nitrite (Negative) Urine Bilirubin (Negative) Urine Urobilinogen (<2.0) mg/dL Ur Leukocyte Esterase (Negative) Urine WBC (Auto) (0.0-6.0) /HPF Urine RBC (Auto) (0.0-6.0) /HPF U Epithel Cells (Auto) (0-13.0) /HPF Urine Mucus /HPF Salicylates < 0.3 L (2.8-20.0) mg/dL Urine Opiates Screen Urine Methadone Screen Acetaminophen (10.0-30.0) ug/mL Ur Barbiturates Screen Valproic Acid < 2.8 L (50-100) ug/mL Ur Phencyclidine Scrn Ur Amphetamines Screen U Benzodiazepines Scrn [place] 0.1 (0.0-1.2) mmol/L Urine Cocaine Screen U Marijuana (THC) Screen Drugs of Abuse Note Plasma/Serum Alcohol < 0.01 (0-0.07) % 08/07/19 08/07/19 Range/Units Unknown Unknown WBC (4.5-11.0) K/mm3 RBC (3.65-5.03) M/mm3 Hgb (10.1-14.3) gm/dl Hct (30.3-42.9) % MCV (79-97) fl MCH (28-32) pg MCHC (30-34) % RDW (13.2-15.2) % Plt Count (140-440) K/mm3 Lymph % (Auto) (13.4-35.0) % [place] % (Auto) (0.0-7.3) % Eos % (Auto) (0.0-4.3) % Baso % (Auto) (0.0-1.8) % Lymph # (1.2-5.4) K/mm3 [place] # (0.0-0.8) K/mm3 Eos # (0.0-0.4) K/mm3 Baso # (0.0-0.1) K/mm3 Seg Neutrophils % (40.0-70.0) % Seg Neutrophils # (1.8-7.7) K/mm3 Sodium (137-145) mmol/L Potassium (3.6-5.0) mmol/L Chloride (98-107) mmol/L Carbon Dioxide (22-30) mmol/L Anion Gap mmol/L BUN (7-17) mg/dL Creatinine (0.7-1.2) mg/dL Estimated GFR ml/min BUN/Creatinine Ratio % Glucose (65-100) mg/dL Calcium (8.4-10.2) mg/dL Total Bilirubin (0.1-1.2) mg/dL AST (5-40) units/L ALT (7-56) units/L Alkaline Phosphatase (35-129) units/L Total Protein (6.3-8.2) g/dL Albumin (3.9-5) g/dL Albumin/Globulin Ratio % HCG, Qual (Negative) Urine Color Yellow (Yellow) Urine Turbidity Slightly-cloudy (Clear) Urine pH 6.0 (5.0-7.0) Ur Specific [place] 1.020 (1.003-1.030) Urine Protein <15 mg/dl (Negative) mg/dL Urine Glucose (UA) Neg (Negative) mg/dL Urine Ketones Neg (Negative) mg/dL Urine Blood Neg (Negative) Urine Nitrite Neg (Negative) Urine Bilirubin Neg (Negative) Urine Urobilinogen < 2.0 (<2.0) mg/dL Ur Leukocyte Esterase Mod (Negative) Urine WBC (Auto) 14.0 H (0.0-6.0) /HPF Urine RBC (Auto) 4.0 (0.0-6.0) /HPF U Epithel Cells (Auto) 17.0 H (0-13.0) /HPF Urine Mucus Few /HPF Salicylates (2.8-20.0) mg/dL Urine Opiates Screen Presumptive negative Urine Methadone Screen Presumptive negative Acetaminophen (10.0-30.0) ug/mL Ur Barbiturates Screen Presumptive negative Valproic Acid (50-100) ug/mL Ur Phencyclidine Scrn Presumptive negative Ur Amphetamines Screen Presumptive negative U Benzodiazepines Scrn Presumptive negative [place] (0.0-1.2) mmol/L Urine Cocaine Screen Presumptive positive U Marijuana (THC) Screen Presumptive negative Drugs of Abuse Note Disclamer Plasma/Serum Alcohol (0-0.07) % Vital Signs 08/07/19 08/07/19 08/07/19 15:43 16:22 16:32 Temperature 98.8 F 98.2 F Pulse Rate 92 H 68 Respiratory 18 18 18 Rate Blood Pressure 114/65 144/65 O2 Sat by Pulse 97 100 100 Oximetry medically cleared for MHE dispo per MHE - Differential Diagnosis MEDICALLY CLEAR FOR MHE Critical care attestation.: If time is entered above; I have spent that time in minutes in the direct care of this critically ill patient, excluding procedure time. ED Disposition Clinical Impression: Suicidal ideation Disposition: DC/TX-65 PSY HOSP/PSY UNIT Is pt being admited?: No Does the pt Need Aspirin: No Condition: Stable Time of Disposition: 18:15
[2019-08-07 16:23] LABS: Basophils % (Auto) 0.4 % (0.0-1.8); Eosinophils # (Auto) 0.1 K/mm3 (0.0-0.4); Eosinophils % (Auto) 1.2 % (0.0-4.3); Hematocrit 37.1 % (30.3-42.9); Lymphocytes # (Auto) 1.3 K/mm3 (1.2-5.4); Lymphocytes % (Auto) 11.9 % (13.4-35.0); Mean Corpuscular HGB Conc 35 % (30-34); Mean Corpuscular Volume 89 fl (79-97); Monocytes # (Auto) 0.9 K/mm3 (0.0-0.8); Monocytes % (Auto) 8.6 % (0.0-7.3); Platelet Count 529 K/mm3 (140-440); Red Blood Count 4.17 M/mm3 (3.65-5.03)
--- NOTE | 2019-08-07 16:40 | XRay Report ---
CHEST 1 VIEW 08/07/2019 4:21 PM INDICATION / CLINICAL INFORMATION: Medical Clearance Psych. COMPARISON: Chest x-ray on 01/13/2018. FINDINGS: SUPPORT DEVICES: None. HEART / MEDIASTINUM: No significant abnormality. LUNGS / PLEURA: Unchanged mild linear scarring in the right midlung. No acute consolidation or signif icant effusion. No pneumothorax. ADDITIONAL FINDINGS: No significant additional findings. IMPRESSION: 1. No acute findings. Signer Name: Tirso Pollard MD Signed: 08/07/2019 4:35 PM Workstation Name: [id number]
[2019-08-07 16:45] LABS: Alanine Aminotransferase 21 units/L (7-56); Albumin 4.2 g/dL (3.9-5); BUN/Creatinine Ratio 30; Blood Urea Nitrogen 15 mg/dL (7-17); Calcium 9.1 mg/dL (8.4-10.2); Hemolysis Index 13
[2019-08-07 17:01] LABS: Amphetamine Screen,Urine PRESUMPTIVE NEGATIVE; Benzodiazepines Screen,Urine PRESUMPTIVE NEGATIVE; Cannabinoid Screen,Urine PRESUMPTIVE NEGATIVE; Methadone Screen,Urine PRESUMPTIVE NEGATIVE; Opiate Screen,Urine PRESUMPTIVE NEGATIVE
[2019-08-07 17:16] LABS: Bilirubin,Urine NEG (Negative); Blood,Urine NEG (Negative); Color,Urine Yellow (Yellow); Mucus,Urine FEW /HPF; Protein,Urine <15 mg/dL mg/dL (Negative); Urobilinogen,Urine < 2.0 mg/dL (<2.0)
[2019-08-07] MEDS ORDERED: LORazepam 1 MG TAB ONE (17:18)
[2019-08-07 17:21] LABS: Cocaine Screen,Urine PRESUMPTIVE POSITIVE
[2019-08-07] MEDS ORDERED: LORazepam 1 MG TAB PO ONE (18:17)
[2019-08-08] MEDS ORDERED: ACETAMINOPHEN 325 MG TAB PO ONE (02:04)
[2019-08-08] MEDS ORDERED: LORazepam 1 MG TAB PO ONE (09:26)
--- NOTE | 2019-08-08 09:39 | Consultation ---
History of Present Illness - Reason for Consult Consult date: 08/08/19 Reason for consult: Mental Health Evaluation Requesting physician: JUAN PABLO ADAMS - Chief Complaint Chief complaint: 'I am having issues" - History of Present Psychiatric Illness 44 y.o.female who presented to the ER for SI's. and bizarre behavior. Today the patient was anxious during the assessment. She was asked several questions about her mental health, her answers were nonsensical. The patient had to be redirecte d several times to keep her on topic. She did state that she take Seroquel and was a patient at [facility] in the past. She stated that she did "a little of cocaine" recently. Overall, the patient's insight is poor. She denies SI/HI's. Medications and Allergies Allergies Allergy/AdvReac Type Severity Reaction Status Date / Time No Known Allergies Allergy Unverified 01/13/18 21:57 Home Medications Medication Instructions Recorded Confirmed Last Taken Type ALBUTEROL Inhaler (OR & NICU) 2 puff IH QID PRN #1 inhalation 01/14/18 08/08/19 Unknown Rx [ProAir HFA Inhaler] Past psychiatric history - Past Medical History Past Medical History: other (Back Injury) Past Surgical History: No surgical history - past Psychiatric treatment and history psychiatric treatment history: Several inpatient psy settings. Denies a fam psy hx. - Social History Social history: other (Unable to obtain ) Mental Status Exam - Vital signs Last Vital Signs Temp 98.1 F 08/08/19 07:00 Pulse 93 H 08/08/19 07:00 Resp 16 08/08/19 07:00 BP 125/81 08/08/19 07:00 Pulse Ox 100 08/08/19 07:00 - Exam Narrative exam: MSE: Appearance: disheveled Behavior: regular eye contact Speech: hyper verbal Mood: "anxious" Affect: congruent to mood Thought Process: tangential, somewhat disorganized Thought Content: denies SI/HI's and VH's Motor Activity: ambulatory Cognition: A/O x 3 Insight: poor Judgment: poor Results Result Diagrams: 08/07/19 16:09 08/07/19 16:09 Abnormal lab results 08/07/19 08/07/19 08/07/19 Range/Units 16:09 16:09 16:09 MCHC 35 H (30-34) % Plt Count 529 H (140-440) K/mm3 Lymph % (Auto) 11.9 L (13.4-35.0) % [place] % (Auto) 8.6 H (0.0-7.3) % [place] # 0.9 H (0.0-0.8) K/mm3 Seg Neutrophils % 77.9 H (40.0-70.0) % Seg Neutrophils # 8.6 H (1.8-7.7) K/mm3 Sodium 131 L (137-145) mmol/L Potassium 3.4 L (3.6-5.0) mmol/L Chloride 91.9 L (98-107) mmol/L Creatinine 0.5 L (0.7-1.2) mg/dL Glucose 136 H (65-100) mg/dL Urine WBC (Auto) (0.0-6.0) /HPF U Epithel Cells (Auto) (0-13.0) /HPF Salicylates (2.8-20.0) mg/dL Acetaminophen < 5.0 L (10.0-30.0) ug/mL Phenytoin (10.0-20.0) ug/mL Valproic Acid (50-100) ug/mL Carbamazepine (4-12) ug/mL 08/07/19 08/07/19 Range/Units 16:09 Unknown MCHC (30-34) % Plt Count (140-440) K/mm3 Lymph % (Auto) (13.4-35.0) % [place] % (Auto) (0.0-7.3) % [place] # (0.0-0.8) K/mm3 Seg Neutrophils % (40.0-70.0) % Seg Neutrophils # (1.8-7.7) K/mm3 Sodium (137-145) mmol/L Potassium (3.6-5.0) mmol/L Chloride (98-107) mmol/L Creatinine (0.7-1.2) mg/dL Glucose (65-100) mg/dL Urine WBC (Auto) 14.0 H (0.0-6.0) /HPF U Epithel Cells (Auto) 17.0 H (0-13.0) /HPF Salicylates < 0.3 L (2.8-20.0) mg/dL Acetaminophen (10.0-30.0) ug/mL Phenytoin 0.8 L (10.0-20.0) ug/mL Valproic Acid < 2.8 L (50-100) ug/mL Carbamazepine 2.0 L (4-12) ug/mL All other labs normal. Assessment and Plan Assessment and plan: Impression: Unspecified Psychosis. Substance Use DO (cociane). Today the patient was anxious during the assessment. DDx: Bipolar DO with psychosis, Substance Induced Psychosis Recommendation/Plan: Continue 1013 and start Seroquel 100 mg PO for psychosis and Buspar 7.5 mg PO BID for anxiety. Discussed possible metabolic side effects from Seroquel with the patient, she verbalized understanding. Dispo: The patient was referred to inpatient psy services. Staffed with Dr Guerrero Mcintyre.
[2019-08-08 14:58] VITALS: BP 93/63
[2019-08-08] MEDS: busPIRone 5 MG TAB PO SCH ×2 (15:00→23:04)
[2019-08-08] MEDS ORDERED: QUEtiapine 100 MG TAB PO SCH (22:00)
== END 2019-08-09 00:48 ==
LOC: ED 15:28
DX: F23 Brief psychotic disorder (principal); F31.9 Bipolar disorder, unspecified; J44.9 Chronic obstructive pulmonary disease, unspecified; I10 Essential (primary) hypertension; Z90.711 Acquired absence of uterus with remaining cervical stump; Z87.891 Personal history of nicotine dependence; Z79.899 Other long term (current) drug therapy
CPT/HCPCS: 36415; 71045; 80053; 80156; 80164; 80178; 80185; 80307; 80320; 81001; 84443; 84703; 85025; 87086; 93005; 93010; 99285; G0480

== ENCOUNTER 2020-10-06 02:15 | Emergency (ER) | payer MEDICARE ==
[2020-10-06 02:57] LABS: Hematocrit 28.7 % (30.3-42.9); Hemoglobin 9.7 gm/dl (10.1-14.3); Mean Corpuscular HGB Conc 34 % (30-34); Mean Corpuscular Volume 83 fl (79-97); Platelet Count 537 K/mm3 (140-440); Red Blood Count 3.46 M/mm3 (3.65-5.03); Red Cell Distribution Width 19.6 % (13.2-15.2)
[2020-10-06 03:07] LABS: Blood Urea Nitrogen 9 mg/dL (7-17); Calcium 8.9 mg/dL (8.4-10.2); Hemolysis Index 0
[2020-10-06 03:17] LABS: BUN/Creatinine Ratio 15
[2020-10-06] MEDS ORDERED: POTASSIUM CHLORIDE ER 20 MEQ TAB PO ONE (03:25)
--- NOTE | 2020-10-06 03:53 | Emergency Department Report ---
<GLENROY MÁRQUEZ - Last Filed: 10/06/20 04:50> ED Psych HPI - General Chief Complaint: Psych Stated Complaint: MH Time Seen by Provider: 10/06/20 02:43 Source: patient Mode of arrival: Wheelchair - History of Present Illness Initial Comments: Patient is a 45-year-old female who is presenting with what appears to be a manic episode. Patient states she just left another emergency department and was given some antibiotics for cellulitis to her right hand. She states she was unable to get into her house and 1 to be brought back to the hospital. Patient rambling has pressured speech about her medications. Patient is rambling multiple medications and how long has been since she is taking them. She is quite repetitive and not a poor historian. - Related Data Previous Rx's Medication Instructions Recorded Last Taken Type Albuterol Mdi (or & Nicu Only) 2 puff IH QID PRN #1 inhalation 01/14/18 Unknown Rx [ProAir HFA Inhaler] Potassium Chloride [K-Dur] 20 meq PO BID #30 tab 10/06/20 Unknown Rx cephALEXin [Keflex] 500 mg PO Q6HR #28 capsule 10/06/20 Unknown Rx Allergies Allergy/AdvReac Type Severity Reaction Status Date / Time divalproex sodium Allergy Unknown Verified 10/06/20 02:28 [From Depakote] insect venom Allergy Unknown Verified 10/06/20 02:28 ED Review of Systems Comment: All other systems reviewed and negative ED Past Medical Hx - Past Medical History Previous Medical History?: Yes Hx Hypertension: Yes Hx CVA: Yes (right sided weakness) Hx Psychiatric Treatment: Yes (depression with psychosis, bipolar) Hx Asthma: Yes Hx COPD: Yes Additional medical history: low Blood sugar - Surgical History Past Surgical History?: Yes Additional Surgical History: partial Hyster, hernia, lumpectomy rt breast - Social History Smoking Status: Current Every Day Smoker Substance Use Type: Alcohol - Medications Home Medications: Home Medications Medication Instructions Recorded Confirmed Last Taken Type Albuterol Mdi (or & Nicu Only) 2 puff IH QID PRN #1 inhalation 01/14/18 08/08/19 Unknown Rx [ProAir HFA Inhaler] Potassium Chloride [K-Dur] 20 meq PO BID #30 tab 10/06/20 Unknown Rx cephALEXin [Keflex] 500 mg PO Q6HR #28 capsule 10/06/20 Unknown Rx ED Physical Exam - General Limitations: Physical Limitation General appearance: alert, in no apparent distress - Head Head exam: Present: atraumatic, normocephalic - Eye Eye exam: Present: normal appearance - ENT ENT exam: Present: mucous membranes moist - Neck Neck exam: Present: normal inspection - Respiratory Respiratory exam: Present: normal lung sounds bilaterally. Absent: respiratory distress, wheezes, rales, rhonchi - Cardiovascular Cardiovascular Exam: Present: regular rate, normal rhythm. Absent: systolic murmur, diastolic murmur, rubs, gallop - GI/Abdominal GI/Abdominal exam: Present: soft, normal bowel sounds - Extremities Exam Extremities exam: Present: normal inspection - Back Exam Back exam: Present: normal inspection - Neurological Exam Neurological exam: Present: alert, oriented X3 - Psychiatric Psychiatric exam: Present: normal mood, agitated, manic - Skin Skin exam: Present: warm, dry, intact, normal color. Absent: rash ED Course - Reevaluation(s) Reevaluation #1: 10/06/20 04:50 Patient is medically cleared. ED Medical Decision Making - Lab Data Result diagrams: 10/06/20 02:36 10/06/20 02:36 Lab Results 10/06/20 10/06/20 10/06/20 Range/Units 02:36 02:36 02:36 WBC (4.5-11.0) K/mm3 RBC (3.65-5.03) M/mm3 Hgb (10.1-14.3) gm/dl Hct (30.3-42.9) % MCV (79-97) fl MCH (28-32) pg MCHC (30-34) % RDW (13.2-15.2) % Plt Count (140-440) K/mm3 Sodium 137 (137-145) mmol/L Potassium 2.9 L* (3.6-5.0) mmol/L Chloride 99.0 (98-107) mmol/L Carbon Dioxide 27 (22-30) mmol/L Anion Gap 14 mmol/L BUN 9 (7-17) mg/dL Creatinine 0.6 (0.6-1.2) mg/dL Estimated GFR > 60 ml/min BUN/Creatinine Ratio 15 % Glucose 96 (65-100) mg/dL Calcium 8.9 (8.4-10.2) mg/dL Salicylates < 0.3 L (2.8-20.0) mg/dL Acetaminophen 5.0 L (10.0-30.0) ug/mL Plasma/Serum Alcohol (0-0.07) % 10/06/20 10/06/20 Range/Units 02:36 02:36 WBC 10.4 (4.5-11.0) K/mm3 RBC 3.46 L (3.65-5.03) M/mm3 Hgb 9.7 L (10.1-14.3) gm/dl Hct 28.7 L (30.3-42.9) % MCV 83 (79-97) fl MCH 28 (28-32) pg MCHC 34 (30-34) % RDW 19.6 H (13.2-15.2) % Plt Count 537 H (140-440) K/mm3 Sodium (137-145) mmol/L Potassium (3.6-5.0) mmol/L Chloride (98-107) mmol/L Carbon Dioxide (22-30) mmol/L Anion Gap mmol/L BUN (7-17) mg/dL Creatinine (0.6-1.2) mg/dL Estimated GFR ml/min BUN/Creatinine Ratio % Glucose (65-100) mg/dL Calcium (8.4-10.2) mg/dL Salicylates (2.8-20.0) mg/dL Acetaminophen (10.0-30.0) ug/mL Plasma/Serum Alcohol < 0.01 (0-0.07) % ED Disposition Clinical Impression: Hypokalemia, General medical exam, Medication refill Disposition: TO HOME OR SELFCARE Condition: Good Additional Instructions: Please follow-up with the outpatient psychiatric resources that have been provided to the patient. Recommend the patient avoid consumption of alcohol, cocaine, recreational and illicit drugs. Cultures were sent today, and results will be available in the next 3 to 5 days. Please have a primary care doctor contact the medical records department to obtain culture results. Patient may alternate [id number] acetaminophen, with [id number] ibuprofen, as directed on the package as, as needed for pain. Patient may also alternate ice packs, heat packs, range of motion exercises to painful areas on her body. Take the potassium supplementation as directed, and antibiotics as directed. Follow-up with a primary care doctor, such as Dr. Sanderson, within the next 2 weeks for recheck. Follow-up with an orthopedic/hand physician, such as Dr. Robbins, for right hand pain, within the next 5 days. Please return to the emergency room right away with new pain, worsening pain, migration of pain, intractable nausea/ vomiting, change in mental status, confusion, inability tolerate liquid feeds, new, worsening or different symptoms not present on the initial emergency evaluation. Outpatient COMMUNITY Behavioral Health Resources: [facility] ([facility]) [address] [place] [address] / [phone] Tuesday thru Tuesday - 8am - 5pm [facility] Address: [address] [place], [place] Tuesday thru Tuesday- 7am-2pm [facility] Address: [address] Tuesday thru Tuesday: 8:30AM-5PM CRISIS RESOURCES [place] Crisis Line: Suicide Prevention Line: Crisis Text Line: Text START to 179864 Emergency: 911 In case of an emergency, please contact the following numbers: [place] Crisis and Access Line: Number: Crisis Text Line: (Text START) Number: 207698 Suicide Prevention Line: Number: Emergency Number: 911 SUBSTANCE ABUSE PROGRAMS: [facility]: Location: [place], [place] [facility]! Address: [address] [place], [place] [facility]: Address: [address] [place], [place] [facility]: Address: [address] [place] [address] [facility] Community: Address: [address] [place], [place] [facility] Address: [address] [place] [address]. Please contact above numbers to attempt placement into free based program. Medicaid Programs: [facility]: Address: [address] [facility], [place] [address] [facility]: Address: [address] [place] [address] OUTPATIENT MENTAL HEALTH RESOURCES [facility], [facility] Ulysses Burks MD: [address] [facility] [address] [place] [address] [place] [address] [facility]: [facility] [address] [place] [address] [place] [address] [phone] [facility]: [facility] Healthcare: [address] [facility] [address] [place] [address] [place] [address] [facility] [address] [facility]: Gordon Pierce MD: [address] [facility] [address] [facility] [id number] [place] [facility]: [address] [place], [place] [id number] [phone] [place] CRISIS AND ACCESS LINE: Prescriptions: Potassium Chloride [K-Dur] 20 meq PO BID #30 tab cephALEXin [Keflex] 500 mg PO Q6HR #28 capsule Referrals: BELIA SANDERSON MD [Staff Physician] - 3-5 Days JERI ROBBINS MD [Staff Physician] - 3-5 Days [facility] [Outside] - 3-5 Days <RENEE MACK - Last Filed: 10/06/20 19:14> ED Review of Systems ROS: Stated complaint: MH Other details as noted in HPI ED Course Vital Signs 10/06/20 10/06/20 02:25 09:02 Temperature 98.1 F 98.2 F Pulse Rate 95 H 93 H Respiratory 18 20 Rate Blood Pressure 131/60 Blood Pressure 149/92 [Left] O2 Sat by Pulse 98 98 Oximetry - Reevaluation(s) Reevaluation #1: 10/06/20 11:13 The patient was medically cleared by her initial screening/treating physician. She was evaluated by the psychiatry team, and deemed to not meet criteria for 1013 hold, involuntary hold, or 1013. On my evaluation, the patient is awake, follows commands, cooperative, does not endorse homicidality, suicidality, hallucinations. On examination of the hand, I do not appreciate significant redness, significant tenderness, and while distracted, there is no pain with passive range of motions of the digits in the right upper extremity. In addition, capillary refill was 2 seconds and 5 digits, the patient has 2+ pulses in her radial distribution, with minimal erythema. Urinalysis is contaminated. Patient states she did not get her Keflex prescription filled. I will refill her Keflex prescription, discharged with potassium sulfate supplementation, patient may follow-up with outpatient primary care. In addition, the psychiatry team has indicated that they will provide the patient with outpatient resources. ED Medical Decision Making - Lab Data Result diagrams: 10/06/20 02:36 10/06/20 02:36 Critical care attestation.: If time is entered above; I have spent that time in minutes in the direct care of this critically ill patient, excluding procedure time. ED Disposition Is pt being admited?: No Does the pt Need Aspirin: No
[2020-10-06 04:06] LABS: Amphetamine Screen,Urine PRESUMPTIVE NEGATIVE; Bacteria,Urine 2+ /HPF (Negative); Benzodiazepines Screen,Urine PRESUMPTIVE NEGATIVE; Bilirubin,Urine NEG (Negative); Blood,Urine NEG (Negative); Cannabinoid Screen,Urine PRESUMPTIVE NEGATIVE; Cocaine Screen,Urine PRESUMPTIVE POSITIVE; Color,Urine Yellow (Yellow); Hyaline Casts,Urine 2 /LPF; Methadone Screen,Urine PRESUMPTIVE NEGATIVE; Opiate Screen,Urine PRESUMPTIVE NEGATIVE; Protein,Urine <15 mg/dL mg/dL (Negative)
[2020-10-06 04:39] LABS: Anisocytosis 1+; Band Neutrophils # (Manual) 0.1 K/mm3; Total Cells Counted 100
[2020-10-06 04:40] LABS: Platelet Estimate Consistent w Auto
[2020-10-06 09:03] VITALS: BP 149/92
--- NOTE | 2020-10-06 10:04 | Consultation ---
History of Present Illness - Reason for Consult Consult date: 10/06/20 Reason for consult: anxious, rambling - History of Present Psychiatric Illness Bernadette Priest is a 45y/o female patient who presented to the ER stating she had cellulitis of her hand and needed antibiotics. It is said the patient appeared manic and was rambling at that time. During my interview the patient is quiet drowsy. She is difficulty to engage and constantly needing to be aroused. The patient is also easily irritated. She says she came to the hospital for pain in her right hand. She says she has a history of Bipolar and takes cymbalta and seroquel. The patient says she takes her meds and sees her doctor. The patient denies SI/HI, and states "I didn't come in for that so why would I be now." She denies hallucinations of any kind. The patient denies any illicit drug use although she's positive for cocaine. The patient then drifts back to sleep and becomes upset that she's being arouses. PAST PSYCHIATRIC HISTORY Diagnoses: Bipolar Suicide attempts or Self-harm behavior: Denies Prior psychiatric hospitalizations: Denies Substance Abuse history: Denies, UDS + for cocaine Previous psychiatric medications tried: seroquel and cymbalta Outpatient treatment: Yes PAST MEDICAL HISTORY: None reported Family Psychiatric History: None reported or documented SOCIAL HISTORY Could not obtain REVIEW OF SYSTEMS Could not obtain MENTAL STATUS EXAMINATION General Appearance and Behavior: Age appropriate, good hygiene, wearing appropr iate clothes, asleep Cooperation: Participating/engaged Psychomotor Behavior: Psychomotor normal Mood: "it's okay" Affect and affective range: congruent with stated mood Thought Process: drowsy Thought Content: none Speech: Normal rate, volume and rhythm Suicidal Ideation: Denies Homicidal Ideation: Denies Hallucinations: Denies Delusions: None elicited Impulse Control: Limited Insight and Judgment: Limited insight and judgment Memory: Limited Attention: impaired Orientation: Alert, oriented Assessment and Plan (1) Cocaine Use Disorder (2) Substance Induced Mood Disorder TREATMENT Continue home medications Sitter: Defer to primary Medical: per primary Disposition: Do not recommend acute inpatient psychiatric treatment. The patient may discharge once medically clear. She was explained that if SI/HI or any fear of endangerment are to arise she is to seek immediate assistance including 911, ER and crisis hotling. The fast food attendant is to give the patient resources for outpatient services, CBT, and drug rehab The patient is to abstain from all illicit drug use. She is to follow up with outpatient in 7 to 14 days upon discharge. Thank you for this consult Case staffed with Dr. Holloway Medications and Allergies Allergies Allergy/AdvReac Type Severity Reaction Status Date / Time divalproex sodium Allergy Unknown Verified 10/06/20 02:28 [From Depakote] insect venom Allergy Unknown Verified 10/06/20 02:28 Home Medications Medication Instructions Recorded Confirmed Last Taken Type Albuterol Mdi (or & Nicu Only) 2 puff IH QID PRN #1 inhalation 01/14/18 08/08/19 Unknown Rx [ProAir HFA Inhaler] Mental Status Exam - Vital signs Last Vital Signs Temp 98.2 F 10/06/20 09:02 Pulse 93 H 10/06/20 09:02 Resp 20 10/06/20 09:02 BP 149/92 10/06/20 09:02 Pulse Ox 98 10/06/20 09:02 Results Result Diagrams: 10/06/20 02:36 10/06/20 02:36 Abnormal lab results 10/06/20 10/06/20 10/06/20 Range/Units 02:36 02:36 02:36 RBC (3.65-5.03) M/mm3 Hgb (10.1-14.3) gm/dl Hct (30.3-42.9) % RDW (13.2-15.2) % Plt Count (140-440) K/mm3 Seg Neuts % (Manual) (40.0-70.0) % Eosinophils % (Manual) (0.0-4.3) % Eosinophils # (Manual) (0.0-0.4) K/mm3 Potassium 2.9 L* (3.6-5.0) mmol/L Urine WBC (Auto) (0.0-6.0) /HPF Salicylates < 0.3 L (2.8-20.0) mg/dL Acetaminophen 5.0 L (10.0-30.0) ug/mL 10/06/20 10/06/20 Range/Units 02:36 03:36 RBC 3.46 L (3.65-5.03) M/mm3 Hgb 9.7 L (10.1-14.3) gm/dl Hct 28.7 L (30.3-42.9) % RDW 19.6 H (13.2-15.2) % Plt Count 537 H (140-440) K/mm3 Seg Neuts % (Manual) 71.0 H (40.0-70.0) % Eosinophils % (Manual) 8.0 H (0.0-4.3) % Eosinophils # (Manual) 0.8 H (0.0-0.4) K/mm3 Potassium (3.6-5.0) mmol/L Urine WBC (Auto) 9.0 H (0.0-6.0) /HPF Salicylates (2.8-20.0) mg/dL Acetaminophen (10.0-30.0) ug/mL All other labs normal.
== END 2020-10-06 13:20 | disposition home or self-care (01) ==
LOC: ED 02:15
DX: E87.6 Hypokalemia (principal); I10 Essential (primary) hypertension; F25.0 Schizoaffective disorder, bipolar type; J44.9 Chronic obstructive pulmonary disease, unspecified; F17.200 Nicotine dependence, unspecified, uncomplicated; Z98.890 Other specified postprocedural states; Z76.0 Encounter for issue of repeat prescription; Z88.8 Allergy status to other drugs, medicaments and biological substances; Z79.899 Other long term (current) drug therapy; Z86.73 Personal history of transient ischemic attack (TIA), and cerebral infarction without residual deficits; Z90.710 Acquired absence of both cervix and uterus; Z00.01 Encounter for general adult medical examination with abnormal findings
CPT/HCPCS: 36415; 80048; 80307; 80320; 81001; 85007; 85025; 87086; G0480

== ENCOUNTER 2020-12-21 23:43 | Emergency (ER) | payer MEDICARE ==
--- NOTE | 2020-12-22 02:16 | Emergency Department Report ---
HPI - General Chief Complaint: Medical Clearance Time Seen by Provider: 12/22/20 01:54 - HPI HPI: Room 19 The patient is a 45-year-old female present with a chief complaint of suicidal ideation. The patient states she went to [facility] for suicidal ideation. The patient was sent to this ED for medical clearance. The patient is a very poor historian and appears to be under the influence of a controlled substance and does not offer more information ED Past Medical Hx - Past Medical History Hx Hypertension: Yes Hx CVA: Yes (right sided weakness) Hx Psychiatric Treatment: Yes (depression with psychosis, bipolar) Hx Asthma: Yes Hx COPD: Yes Additional medical history: low Blood sugar - Surgical History Past Surgical History?: No Additional Surgical History: partial Hyster, hernia, lumpectomy rt breast - Family History Family history: no significant - Social History Smoking Status: Never Smoker Substance Use Type: None - Medications Home Medications: Home Medications Medication Instructions Recorded Confirmed Last Taken Type Albuterol Mdi (or & Nicu Only) 2 puff IH QID PRN #1 inhalation 01/14/18 08/08/19 Unknown Rx [ProAir HFA Inhaler] Potassium Chloride [K-Dur] 20 meq PO BID #30 tab 10/06/20 Unknown Rx cephALEXin [Keflex] 500 mg PO Q6HR #28 capsule 10/06/20 Unknown Rx ED Review of Systems ROS: Stated complaint: MEDICAL CLEARANCE Other details as noted in HPI Comment: Unobtainable due to pts medical conditions Physical Exam - Physical Exam Vital Signs: Vital Signs 12/21/20 23:53 Temperature 97.7 F Pulse Rate 109 H Respiratory 18 Rate Blood Pressure 122/70 [Right] O2 Sat by Pulse 98 Oximetry Physical Exam: GENERAL: The patient is a thin disheveled female lying on stretcher appearing to be under the influence of a controlled substance. Poor hygiene HEENT: Normocephalic. Atraumatic. Extraocular motions are intact. Patient has moist mucous membranes. NECK: Supple. Trachea midline CHEST/LUNGS: Clear to auscultation. There is no respiratory distress noted. HEART/CARDIOVASCULAR: Regular. There is no tachycardia. There is no gallop rub or murmur. ABDOMEN: Abdomen is soft, nontender. Patient has normal bowel sounds. There is no abdominal distention. SKIN: There is no rash. There is no edema. There is no diaphoresis. NEURO: The patient appears intoxicated. The patient is not cooperative with exam MUSCULOSKELETAL: There is no evidence of acute injury. ED Course Vital Signs 12/21/20 23:53 Temperature 97.7 F Pulse Rate 109 H Respiratory 18 Rate Blood Pressure 122/70 [Right] O2 Sat by Pulse 98 Oximetry ED Medical Decision Making - Lab Data Result diagrams: 12/22/20 02:10 12/22/20 02:10 Laboratory Tests 12/22/20 12/22/20 12/22/20 02:10 02:10 02:10 WBC 7.3 RBC 3.58 L Hgb 8.6 L Hct 26.0 L MCV 73 L MCH 24 L MCHC 33 RDW 19.4 H Plt Count 437 Lymph % (Auto) 20.9 [place] % (Auto) 13.9 H Eos % (Auto) 3.6 Baso % (Auto) 0.7 Lymph # (Auto) 1.5 [place] # (Auto) 1.0 H Eos # (Auto) 0.3 Baso # (Auto) 0.0 Seg Neutrophils % 60.9 Seg Neutrophils # 4.4 Sodium 138 Potassium 3.8 Chloride 101.3 Carbon Dioxide 24 Anion Gap 17 BUN 13 Creatinine 0.7 Estimated GFR > 60 BUN/Creatinine Ratio 19 Glucose 112 H Calcium 8.8 Total Bilirubin < 0.20 AST 15 ALT 10 Alkaline Phosphatase 71 Total Creatine Kinase 126 CK-MB (CK-2) 5.3 H CK-MB (CK-2) Rel Index 4.2 H Troponin T < 0.010 Total Protein 6.9 Albumin 3.8 L Albumin/Globulin Ratio 1.2 HCG, Qual Salicylates < 0.3 L Acetaminophen Plasma/Serum Alcohol 12/22/20 12/22/20 12/22/20 02:10 02:10 02:10 WBC RBC Hgb Hct MCV MCH MCHC RDW Plt Count Lymph % (Auto) [place] % (Auto) Eos % (Auto) Baso % (Auto) Lymph # (Auto) [place] # (Auto) Eos # (Auto) Baso # (Auto) Seg Neutrophils % Seg Neutrophils # Sodium Potassium Chloride Carbon Dioxide Anion Gap BUN Creatinine Estimated GFR BUN/Creatinine Ratio Glucose Calcium Total Bilirubin AST ALT Alkaline Phosphatase Total Creatine Kinase CK-MB (CK-2) CK-MB (CK-2) Rel Index Troponin T Total Protein Albumin Albumin/Globulin Ratio HCG, Qual Negative Salicylates Acetaminophen 5.0 L Plasma/Serum Alcohol < 0.01 - Differential Diagnosis Suicidal ideation Critical care attestation.: If time is entered above; I have spent that time in minutes in the direct care of this critically ill patient, excluding procedure time. ED Disposition Clinical Impression: Suicidal ideation Disposition: [id number]/TX-65 PSY HOSP/PSY UNIT Is pt being admited?: No Does the pt Need Aspirin: No Condition: Stable Referrals: PRIMARY CARE, [Primary Care Provider] - 3-5 Days Time of Disposition: 05:34 (Awaiting placement)
[2020-12-22 02:34] LABS: Basophils % (Auto) 0.7 % (0.0-1.8); Eosinophils # (Auto) 0.3 K/mm3 (0.0-0.4); Eosinophils % (Auto) 3.6 % (0.0-4.3); Hemoglobin 8.6 gm/dl (10.1-14.3); Lymphocytes # (Auto) 1.5 K/mm3 (1.2-5.4); Lymphocytes % (Auto) 20.9 % (13.4-35.0); Mean Corpuscular HGB Conc 33 % (30-34); Mean Corpuscular Volume 73 fl (79-97); Monocytes % (Auto) 13.9 % (0.0-7.3); Platelet Count 437 K/mm3 (140-440); Red Blood Count 3.58 M/mm3 (3.65-5.03); Red Cell Distribution Width 19.4 % (13.2-15.2)
[2020-12-22 03:19] LABS: Creatine Kinase MB 5.3 ng/mL (0.0-4.0)
[2020-12-22 03:20] LABS: Alanine Aminotransferase 10 units/L (7-56); Albumin 3.8 g/dL (3.9-5); Blood Urea Nitrogen 13 mg/dL (7-17); Calcium 8.8 mg/dL (8.4-10.2); Hemolysis Index 2
[2020-12-22 03:21] LABS: BUN/Creatinine Ratio 19
[2020-12-22] MEDS ORDERED: LORazepam 1 MG TAB PO ONE ×2 (08:17→16:51)
[2020-12-22] MEDS ORDERED: ZIPRASIDONE MESYLATE 20 MG VIAL IM ONE (08:28)
[2020-12-22] MEDS ORDERED: WATER FOR INJ Sterile (PF) 10 ML ONE (08:36)
[2020-12-22 09:43] VITALS: BP 107/69
--- NOTE | 2020-12-22 10:02 | Consultation ---
History of Present Illness - Reason for Consult Consult date: 12/22/20 Reason for consult: MHE Requesting physician: NO DELAROSA - History of Present Psychiatric Illness Per ED Provider: The patient is a 45-year-old female present with a chief complaint of suicidal ideation. The patient states she went to [place] for suicidal ideation. The patient was sent to this ED for medical clearance. The patient is a very poor historian and appears to be under the influence of a controlled substance and does not offer more information PSYCH HPI Patient is a 45 year old homeless, unemployed, female with past psychiatric history of bipolar and drug use who presents to the ED with complaints of SI due to hopelessness and desire to not want to live anymore because nothing good is happening to her. Patient appears sedated, nurse reports patient was recently medicated this AM. THough, it was noted during patients last encounter, she was drowsy. PAST PSYCHIATRIC HISTORY Diagnoses: Bipolar Suicide attempts or Self-harm behavior: Denies Prior psychiatric hospitalizations: Denies Substance Abuse history: Denies, UDS + for cocaine Previous psychiatric medications tried: seroquel and cymbalta Outpatient treatment: Yes PAST MEDICAL HISTORY: None reported Family Psychiatric History: None reported or documented SOCIAL HISTORY Could not obtain REVIEW OF SYSTEMS Could not obtain MENTAL STATUS EXAMINATION General Appearance and Behavior: Age appropriate, good hygiene, wearing appropriate clothes, asleep Cooperation: Participating/engaged Psychomotor Behavior: Psychomotor normal Mood: "sad" Affect and affective range: congruent with stated mood Thought Process: drowsy Thought Content: none Speech: Normal rate, volume and rhythm Suicidal Ideation:SI Homicidal Ideation: Denies Hallucinations: Denies Delusions: None elicited Impulse Control: Limited Insight and Judgment: Limited insight and judgment Memory: Limited Attention: impaired Orientation: Alert, oriented Assessment and Plan - Psychiatric problem (1) Substance induced mood disorder Current Visit: Yes Status: Acute f19.94 Treatment Plan UDS pending, pt appears drowsy. Hold off meds for now MEDICATIONS: Risks, benefits and alternatives of medications discussed with the patient, questions answered and consent obtained from patient. PSYCHOTHERAPY: Supportive psychotherapy provided MEDICAL: Per primary team DELIRIUM PRECAUTIONS: Please re-orient patient frequently, keep lights on during the day, and minimize benzodiazepines and opiates as these medications could worsen patient's confusion. SENIOR NETWORK ADMINISTRATOR: DISPOSITION: Do Recommend acute inpatient psychiatric hospitalization at this time. Case discussed with Dr. Holloway who agrees with current disposition LEGAL STATUS: 1013 FOLLOW-UP: Will follow Thank you for the consult. Please contact with any questions and/or concerns. Medications and Allergies Allergies Allergy/AdvReac Type Severity Reaction Status Date / Time divalproex sodium Allergy Unknown Verified 12/21/20 23:45 [From Depakote] insect venom Allergy Unknown Verified 12/21/20 23:45 Home Medications Medication Instructions Recorded Confirmed Last Taken Type Albuterol Mdi (or & Nicu Only) 2 puff IH QID PRN #1 inhalation 01/14/18 08/08/19 Unknown Rx [ProAir HFA Inhaler] Potassium Chloride [K-Dur] 20 meq PO BID #30 tab 10/06/20 Unknown Rx cephALEXin [Keflex] 500 mg PO Q6HR #28 capsule 10/06/20 Unknown Rx Mental Status Exam - Vital signs Last Vital Signs Temp 98.4 F 12/22/20 09:42 Pulse 89 12/22/20 09:42 Resp 18 12/22/20 09:42 BP 107/69 12/22/20 09:42 Pulse Ox 97 12/22/20 09:42 Results Result Diagrams: 12/22/20 02:10 12/22/20 02:10 Abnormal lab results 12/22/20 12/22/20 12/22/20 Range/Units 02:10 02:10 02:10 RBC 3.58 L (3.65-5.03) M/mm3 Hgb 8.6 L (10.1-14.3) gm/dl Hct 26.0 L (30.3-42.9) % MCV 73 L (79-97) fl MCH 24 L (28-32) pg RDW 19.4 H (13.2-15.2) % [place] % (Auto) 13.9 H (0.0-7.3) % [place] # (Auto) 1.0 H (0.0-0.8) K/mm3 Glucose 112 H (65-100) mg/dL CK-MB (CK-2) 5.3 H (0.0-4.0) ng/mL CK-MB (CK-2) Rel Index 4.2 H (0-4) Albumin 3.8 L (3.9-5) g/dL Salicylates < 0.3 L (2.8-20.0) mg/dL Acetaminophen (10.0-30.0) ug/mL 12/22/20 Range/Units 02:10 RBC (3.65-5.03) M/mm3 Hgb (10.1-14.3) gm/dl Hct (30.3-42.9) % MCV (79-97) fl MCH (28-32) pg RDW (13.2-15.2) % [place] % (Auto) (0.0-7.3) % [place] # (Auto) (0.0-0.8) K/mm3 Glucose (65-100) mg/dL CK-MB (CK-2) (0.0-4.0) ng/mL CK-MB (CK-2) Rel Index (0-4) Albumin (3.9-5) g/dL Salicylates (2.8-20.0) mg/dL Acetaminophen 5.0 L (10.0-30.0) ug/mL All other labs normal. Assessment and Plan - Psychiatric problem (1) Substance induced mood disorder Current Visit: Yes Status: Acute
[2020-12-22] MEDS ORDERED: ZIPRASIDONE 20 MG CAP PO ONE (16:51)
[2020-12-22] MEDS ORDERED: ACETAMINOPHEN 325 MG TAB PO ONE (17:27)
[2020-12-22 19:41] LABS: Bilirubin,Urine NEG (Negative); Blood,Urine NEG (Negative); Color,Urine Yellow (Yellow); Mucus,Urine 2+ /HPF; Protein,Urine <15 mg/dL mg/dL (Negative)
[2020-12-22 19:42] LABS: Amphetamine Screen,Urine Negative; Benzodiazepines Screen,Urine Negative; Cannabinoid Screen,Urine Negative; Methadone Screen,Urine Negative; Opiate Screen,Urine Negative
[2020-12-22 19:57] LABS: Cocaine Screen,Urine Positive
== END 2020-12-22 18:46 ==
LOC: ED 23:43
DX: R45.851 Suicidal ideations (principal); Z20.822 Contact with and (suspected) exposure to COVID-19; I10 Essential (primary) hypertension; J44.9 Chronic obstructive pulmonary disease, unspecified; Z98.890 Other specified postprocedural states; Z79.899 Other long term (current) drug therapy; Z88.8 Allergy status to other drugs, medicaments and biological substances
CPT/HCPCS: 36415; 80053; 80307; 81001; 82550; 82553; 84484; 84703; 85025; 96372; 99284; J3486; U0003; 80320; G0480

== ENCOUNTER 2021-07-01 14:04 | Outpatient (CLI) | payer MEDICARE ==
--- NOTE | 2021-07-01 14:51 | XRay Report ---
CHEST 2 VIEWS INDICATION / CLINICAL INFORMATION: COUGH,CHEST PAIN. COMPARISON: 12/23/2020 FINDINGS: SUPPORT DEVICES: None. HEART / MEDIASTINUM: No significant abnormality. LUNGS / PLEURA: Increased interstitial prominence and opacities in bilateral lungs persist. No pneumo thorax. ADDITIONAL FINDINGS: No significant additional findings. IMPRESSION: 1. Increased interstitial prominence and opacities in bilateral lungs could represent chronic interst itial change however superimposed infiltrate could also have this appearance. Signer Name: Federico Espana MD Signed: 07/01/2021 2:46 PM Workstation Name: [id number]-Take the Interview
== END 2021-07-01 14:05 | disposition home or self-care (01) ==
LOC: XRAY 14:04
PROVIDERS: ATTEND Student in an Organized Health Care Education/Training Program
DX: R07.89 Other chest pain (principal); R05 Cough
CPT/HCPCS: 71046